=== PATIENT | female | born 2000 | race African-American/Black ===

== ENCOUNTER 2019-04-12 13:52 | Emergency (ER) | payer OTHER ==
[~2019-04-12] VITALS: Ht 165.1 cm; Wt 105.0 kg
[2019-04-12 14:46] VITALS: BP 140/65; PULSE 103; RESP 20; Ht 165.1 cm; Wt 105.0 kg
[2019-04-12] MEDS ORDERED: AMOX1TAB10 PO (14:58)
[2019-04-12] MEDS ORDERED: BENZ1LOZ52 MM (14:59)
--- NOTE | 2019-04-12 15:05 | ERD ---
ER Documentation Chief Complaint Chief Complaint c/o sore throat x1 week. Already on antibiotics and steroids HPI Patient is a 18-year-old female presents the ER for concerns of throat pain x1 week. Patient states she has a history of strep throat. She states she gets strep throat 3-4 times per year. Patient states she been taking amoxicillin for the last 3 days. Patient is also taking prednisone 40 mg daily. Patient states that her throat swelling is improved however she continues to have pain. Patient denies any drooling, trismus or hyper extension of her neck. Patient states her last time she had fevers yesterday. Patient has no fevers today. Patient was told in the past that she needs to have her tonsils taken out however she did not follow-up with an ENT specialist. Patient does have mild dry cough. Patient denies any abdominal pain, vomiting or diarrhea. ROS All systems reviewed and are negative except as per history of present illness. Medications Home Meds Active Scripts Benzocaine/Menthol* (Cepacol* Sore Throat Lozenges) 1 Each Lozenge, 1 EACH MM q2h PRN for SORE THROAT, #20 LOZENGE Prov:CHAN ALVAREZ PA-C 04/12/19 Amoxicillin/Potassium Clav (Amox-Clav 875-125 mg Tablet) 875-125 mg Tab, 1 TAB PO BID for 7 Days, #14 TAB Prov:CHAN ALVAREZ PA-C 04/12/19 FmHx Family History: No diabetes Physical Exam Vitals Vital Signs Date Temp Pulse Resp B/P (MAP) Pulse Ox O2 O2 Flow FiO2 Time Delivery Rate 04/12/19 99.4 103 20 140/65 97 14:46 (90) Physical Exam GENERAL: Well-developed, well-nourished female. Appears in no acute distress. HEAD: Normocephalic, atraumatic. No deformities or ecchymosis. EYE: Pupils equal, round, and reactive to light. EOMs intact. No conjunctival erythema. No eye discharge. ENT: External ear without any masses or tenderness. Auditory canals clear bilaterally. TM visualized bilaterally, non-erythematous, non-bulging. Nasal mucosa pink with no discharge. Oropharynx is erythematous with 2+ tonsillar enlargement bilaterally. No exudates noted. No uvula deviation. No kissing tonsils. NECK: Supple. No meningismus. Normal ROM of the neck. Cervical lymphadenopathy noted bilaterally. Less than 1 cm. Round, movable. LUNG: Clear to auscultation bilaterally. No rhonchi, wheezing, rales or coarse breath sounds. HEART: Regular rate and rhythm. No murmurs, rubs or gallops. EXTREMITES: Equal pulses bilaterally. No peripheral clubbing, cyanosis or edema. No unilateral leg swelling. NEUROLOGIC: Alert and oriented to person, place and time. Moving all four extremities. 5/5 strength in all extremities. Normal speech. Steady gait. SKIN: Normal color. Warm and dry. No rashes or lesions. Procedures/MDM MEDICAL DECISION MAKING: This is a 18-year-old female presents to the ER for concerns of throat pain x1 week. Patient has been on amoxicillin for 3 days and reports minimal alleviation of pain. Patient has also been taking steroids and she states that has been helping with her throat swelling.. Vital signs were reviewed. Patient was afebrile. Patient was not hypoxic. The patient does not have trismus, muffled voice, uvula deviation, unilateral tonsillar swelling, or drooling. No signs of neck swelling or hyperextension of the neck noted. Patient states she has taken amoxicillin numerous times in the past. I do have concerns of resi stance at this time. Patient will be switched to Augmentin. Patient advised to follow-up with an ENT specialist for further management of her recurrent throat infections. At this time, the patient presentation is most consistent with presumed strep pharyngitis. Differential diagnosis included but was not limited to epiglottitis, peritonsillar abscess, retropharyngeal abscess, Ludwigs angina, viral pharyngitis, dental abscess, meningitis. PRESCRIPTIONS: Augmentin, cepacol DISCHARGE: At this time, patient is stable for discharge and outpatient management. Supportive therapies such as OTC throat lozenges and warm salt water gurgles were discussed. I have instructed the patient to follow-up with his/her primary care physician in 1-2 days. I have discussed with the patient the possibility of needing to see a specialist for further workup and imaging studies if symptoms persist. I have instructed the patient to promptly return to the ER for any new or worsening symptoms including increased pain, fever, nausea, vomiting, weakness or LOC. The patient and/or family expressed understanding of and agreement with this plan. All questions were answered. Home care instructions were provided. Disclaimer: Inadvertent spelling and grammatical errors are likely due to EHR/dictation software use and do not reflect on the overall quality of patient care. Also, please note that the electronic time recorded on this note does not necessarily reflect the actual time of the patient encounter. Departure Diagnosis: Primary Impression: Pharyngitis Pharyngitis/tonsillitis etiology: unspecified etiology Qualified Codes: J02.9 - Acute pharyngitis, unspecified Condition: Fair Patient Instructions: Pharyngitis, Strep (Presumed) Referrals: [facility] YOU HAVE RECEIVED A MEDICAL SCREENING EXAM AND THE RESULTS INDICATE THAT YOU DO NOT HAVE A CONDITION THAT REQUIRES URGENT TREATMENT IN THE EMERGENCY DEPARTMENT. FURTHER EVALUATION AND TREATMENT OF YOUR CONDITION CAN WAIT UNTIL YOU ARE SEEN IN YOUR DOCTORS OFFICE WITHIN THE NEXT 1-2 DAYS. IT IS YOUR RESPONSIBILITY TO MAKE AN APPOINTMENT FOR FOLOW-UP CARE. IF YOU HAVE A PRIMARY DOCTOR --you should call your primary doctor and schedule an appointment IF YOU DO NOT HAVE A PRIMARY DOCTOR YOU CAN CALL OUR PHYSICIAN REFERRAL HOTLINE AT IF YOU CAN NOT AFFORD TO SEE A PHYSICIAN YOU CAN CHOSE FROM THE FOLLOWING [facility] [address] [facility]. [facility] [address] [facility]. [facility] [address] [facility] [facility] [address] [facility] [facility] [address] [facility]. [facility]. [address] [facility]. [facility] YOU HAVE RECEIVED A MEDICAL SCREENING EXAM AND THE RESULTS INDICATE THAT YOU DO NOT HAVE A CONDITION THAT REQUIRES URGENT TREATMENT IN THE EMERGENCY DEPARTMENT. FURTHER EVALUATION AND TREATMENT OF YOUR CONDITION CAN WAIT UNTIL YOU ARE SEEN IN YOUR DOCTORS OFFICE WITHIN THE NEXT 1-2 DAYS. IT IS YOUR RESPONSIBILITY TO MAKE AN APPOINTMENT FOR FOLOW-UP CARE. IF YOU HAVE A PRIMARY DOCTOR --you should call your primary doctor and schedule and appointment IF YOU DO NOT HAVE A PRIMARY DOCTOR YOU CAN CALL OUR PHYSICIAN REFERRAL HOTLINE AT . IF YOU CAN NOT AFFORD TO SEE A PHYSICIAN YOU CAN CHOSE FROM THE FOLLOWING [facility]: [facility] [address] [place] [address] [facility] [address] [place] [address] [facility] [address] [place] [address] Additional Instructions: Call your primary care doctor TOMORROW for an appointment during the next 1-2 days.See the doctor sooner or return here if your condition worsens before your appointment time. Continue taking steroids. Follow up with ENT specialist for further management of your ongoing throat pain. You may need a tonsillectomy. CHAN ALVAREZ PA-C April 12, 2019 15:05
== END 2019-04-12 15:13 | disposition home or self-care (01) ==
LOC: E/R 13:52
DX: J02.9 Acute pharyngitis, unspecified (principal)
CPT/HCPCS: 99283